=== PATIENT | male | born 1965 | race Two or more races ===

== ENCOUNTER → 2017-11-04 | Day surgery (SDC) | payer OTHER ==
[~2017-11-04] MED LIST: ASPI81TA50 PO; ATROPINE 0.5 MG/5 ML DISP.SYRIN. IV PRN; CODE1CAP8 PO; FLUT1DIS IH; IV RINGERS SOLUTION,LACTATED 1,000 ML IV SCH; LIDOCAINE 2% PF Vial for OR 5 ML VIAL. ONE; LIDOCAINE 2% TOPICAL JELLY 5GM TUBE. TP ONE; LISI-334 PO; LORA0.5T96 PO; MONT10TA9 PO; NALOXONE 0.4 MG/ML VIAL. IV PRN; OMEP20CA9 PO; ONDANSETRON PF 4 MG/2 ML VIAL. IV PRN; PROPOFOL 40 ML IV ONE; ROPI0.5T PO; SERT100T PO; XOPENEX HFA15 GM IH; diphenhydrAMINE 50 MG/ML VIAL IV PRN
[2017-11-04 13:33] VITALS: BP 126/75
--- NOTE | 2017-11-08 18:08 | PATHOLOGY ---
[facility] Accession Number: [id number] . 01 Material submitted: . ASCENDING POLYP . 02 Diagnosis: Colon biopsy, descending colon polyp: - Tubular adenoma. QRQ/11/08/2017 . 02 Comment: There is no high-grade dysplasia or evidence of malignancy. (JPM:[email or web address]; 11/08/17) . 02 Electronically signed: . Jamal Pascual MD, Pathologist NPI- [id number] . 01 Gross description: . Received in formalin labeled "Samuel Lee, descending colon polyp" and consists of a 0.3 cm soft moy tissue fragment which is entirely submitted as A1. (SARA; 11/07/2017) JBR/JBR . 02 CPT . 925098 [facility]formed at: 01 [facility] [address] [id number] MD Reymundo Casarez MD Phone: [phone] Performed at: 02 [facility] [address] [place], [place] [id number] MD Jamal Pascual MD Phone: [phone]
== END ==
LOC: SURG 11:11
PROVIDERS: ATTEND Internal Medicine Gastroenterology
DX: Z12.11 Encounter for screening for malignant neoplasm of colon (principal); K57.30 Diverticulosis of large intestine without perforation or abscess without bleeding
CPT/HCPCS: 45380; 88305; J2704; J7120; J3010; J2001